=== PATIENT | male | born 1960 | race Caucasian/White ===

== ENCOUNTER 2016-03-02 10:23 | Emergency (ER) | payer MEDICARE, MEDICAID ==
[2016-03-02 11:28] LABS: Basophils # (auto) 0.1 uL; DEFINITIVE VIEW TRANSMISSION; Eosinophils # (auto) 0.1 uL; Monocytes # (auto) 2.7 uL
[2016-03-02 11:33] LABS: Basophils % (auto) 0.4 % (0.0-2.0); Eosinophils % (auto) 0.5 % (0.0-7.0); Hematocrit 45.1 % (41.0-53.0); Hemoglobin 14.6 g/dL (13.5-17.5); Lymphocytes # (auto) 8.3 uL; Lymphocytes % (auto) 29.4 % (10.0-50.0); Mean Corpuscular Hemoglobin 29.2 pg (28.0-32.0); Mean Corpuscular Hgb Conc. 32.3 g/dL (32.0-36.0); Mean Corpuscular Volume 90.5 fL (80.0-100.0); Mean Platelet Volume 9.8 fL (7.4-10.4); Monocytes % (auto) 9.5 % (0.0-12.0); Neutrophils # (auto) 16.9 uL; Neutrophils % (auto) 60.2 % (37.0-80.0); Platelet Count (auto) 269 10^3/uL (140-450); Red Cell Distribution Width 13.3 % (11.6-16.0); SUSPECT VIEW TRANSMISSION; White Blood Cell 28.1 10^3/uL (4.4-10.8)
[2016-03-02 11:37] LABS: Albumin 3.4 g/dL (3.4-5.0); BUN/Creatinine Ratio 4.9; Bilirubin, Total 1.5 mg/dL (0.2-1.0); Calcium 11.7 mg/dL (8.5-10.1); Magnesium 3.2 mg/dL (1.6-2.6); Potassium 3.7 mmol/L (3.5-5.1); Total Protein 8.1 g/dL (6.4-8.2)
[2016-03-02 11:43] LABS: Partial Thromboplastin Time 38.3 sec (22.64-33.71)
[2016-03-02 11:44] LABS: INR 1.31 (0.9-1.15); Prothrombin Time 13.5 sec (9.37-12.3)
[2016-03-02 11:49] LABS: Lactic Acid 20.9 mmol/L (0.4-2.0)
[2016-03-02] MEDS ORDERED: DEXTROSE (50%) 50ML SYRG IV ONE ×2 (12:00→19:05)
[2016-03-02 12:06] LABS: REFLEX LACTIC ACID YES OR NO YES
[2016-03-02] MEDS ORDERED: CLINDAMYCIN 900MG IV 50 ML IV ONE (12:45)
[2016-03-02] MEDS ORDERED: PIPERACILLIN-TAZO 4.5GM 100 ML IV ONE (12:45)
[2016-03-02] MEDS ORDERED: SODIUM BICARBONATE 8.4% INJ 50ML SYRINGE ONE ×2 (13:05→13:07)
[2016-03-02] MEDS ORDERED: SOD CHL 0.9%/ KCL 40MEQ 1,000 ML IV ONE (13:06)
[2016-03-02] MEDS ORDERED: AMIODARONE HCL 900 MG IV ONE (13:07)
[2016-03-02] MEDS ORDERED: EPINEPHrine HCL 1 MG/10 ML SYRG ONE (13:38)
[2016-03-02 14:16] VITALS: BP 0/0
[2016-03-02 14:26] LABS: Lactic Acid 14.3 mmol/L (0.4-2.0)
[2016-03-02 14:46] LABS: REFLEX LACTIC ACID YES OR NO NO
[2016-03-02] MEDS ORDERED: EPINEPHrine HCL 1 MG/10 ML SYRG IV ONE (19:05)
[2016-03-02] MEDS ORDERED: CALCIUM CHLOR(10%) 100MG/ML 10ML SYRINGE IV ONE (19:05)
[2016-03-02] MEDS ORDERED: SODIUM BICARBONATE 8.4% INJ 50ML SYRINGE IV ONE (19:05)
[2016-03-02] MEDS ORDERED: AMIODARONE HCL (50 MG/ ML) 3 ML VIAL IV ONE (19:05)
== END 2016-03-02 14:52 | disposition expired ==
LOC: ER 10:38
DX: I46.9 Cardiac arrest, cause unspecified (principal); A41.9 Sepsis, unspecified organism; J96.00 Acute respiratory failure, unspecified whether with hypoxia or hypercapnia; I10 Essential (primary) hypertension; Z91.09 Other allergy status, other than to drugs and biological substances; R41.82 Altered mental status, unspecified
CPT/HCPCS: 31500; 36415; 36556; 36600; 70450; 71010; 80053; 82805; 83605; 83735; 84484; 85025; 85379; 85610; 85730; 87040; 92950; 93005; 94002; 99291; J0171; J0282; J7042; J7060